=== PATIENT | male | born 1985 | race Two or more races ===

== ENCOUNTER → 2019-01-27 | Outpatient (CLI) | payer BC | LOC: EMCIMAGING 11:28 | PROVIDERS: ATTEND Family Medicine | DX: K59.00 Constipation, unspecified (principal) | CPT/HCPCS: 74018-PN ==

== ENCOUNTER → 2019-02-25 | Outpatient (CLI) | payer BC | LOC: EMCIMAGING 08:24 | PROVIDERS: ATTEND Family Medicine | DX: N20.0 Calculus of kidney (principal); N13.0 Hydronephrosis with ureteropelvic junction obstruction | CPT/HCPCS: 74176-PN ==

== ENCOUNTER → 2019-05-15 | Outpatient (CLI) | payer BC | LOC: EMCIMAGING 08:01 ==